=== PATIENT | female | born 2000 | race Caucasian/White ===

== ENCOUNTER 2023-12-30 15:27 | Outpatient (AMB) | payer OTHER, SELFPAY ==
--- NOTE | 2023-12-30 15:51 | MHC.PC.OV ---
Vital Signs 12/30/23 15:56 Height 5 ft 1.81 in Weight 140 lb 8 oz BMI 25.9 BP 94/62 Blood Pressure Location Lt brachial Position Sitting Respiration 12 Pulse 87 Pulse Source Pulse Oximeter Temp 98.6 F Temp Source Oral Pulse Oximetry (%) 99 Oxygen Delivery Method Room Air Intake Visit Reasons: [employer] EST Care Intake Note: New patient visit. 8 weeks Grill Cook Required: No Allergies No Known Allergies Allergy (Verified 12/30/23 15:52) Tobacco use date assessed: 12/30/23 Dental Screening Dental Screen Date: 12/30/23 Did you have a dental visit in the last 12 months?: Yes Did you have a dental problem in the last 6 months where you did not have access to dental care?: No Was dental information given to patient?: Patient has dentist HPI HPI Comments History of Present Illness Details This is a 23-year-old female with no significant past medical history presenting to [facility]. She is due for a physical. She transferred from [facility]. She has a history of exercise-induced asthma, but she has not had symptoms for many years, and she does not carry an inhaler anymore. 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 She is currently 8 weeks . She tells me she suffered a miscarriage in July of this year when she was on vacation in [place]. She is doing okay though she is anxious about the . She feels well supported at home. She is followed by [facility]. She has an ultrasound scheduled 01/07/2024. She has had some mild nausea and fatigue, but she staying active which helps. She is taking a vitamin. She will get her flu shot at the pharmacy since we ran out of stock today. She has a small mole on the left chest that has been there for many years. During the past year she feels like it has gotten larger and become a little elevated. There is no personal or family history of melanoma. ROS: Constitutional: No unexplained weight loss, fever, chills or night sweats. Eyes: No vision changes, blurry vision, double vision, eye pain, eye redness, eye discharge. ENT: No hearing loss, sneezing, congestion, runny nose or sore throat. Respiratory: No shortness of breath, cough or sputum production. Cardiovascular: No chest pain, chest pressure or chest discomfort. No palpitations or pedal edema. Gastrointestinal: No anorexia, vomiting or diarrhea. No abdominal pain or blood in stool. Genitourinary: No dysuria, hematuria, urinary frequency. Neurologic: No headache, dizziness, syncope, unilateral weakness, ataxia, numbness or tingling in the extremities. Musculoskeletal: No muscle pain, back pain, joint pain or swelling. Hematologic/Lymphatics: No bleeding or bruising. No painful lymph nodes. Skin: No rash Endocrine: No cold or heat intolerance. No polyuria or polydipsia. Psychiatric: No depression. No SI/HI. Physical exam: Constitutional: Alert, in no distress. Head: Normocephalic. Eyes: Pupils are equal, round and reactive to light. Extraocular muscles intact. Ear, Nose and Throat: Canals clear. TMs normal. Normal nasal mucosa. No nasal discharge. No oral lesions. Neck: Supple, Full range of motion. No lymphadenopathy. No palpable thyroid masses. Respiratory: Clear to auscultation. Cardiovascular: S1 S2 regular. No murmurs. Gastrointestinal: Abdomen soft, non-tender, non-distended. Normal bowel sounds. No palpable masses. Neurologic: No focal neurological deficits. Symmetric patellar reflexes. Moves all extremities spontaneously. Sensation intact bilaterally. Skin: 3 mm light brown raised nevus on left chest, color is not homogeneous throughout, borders are symmetric Musculoskeletal: No gross deformities. Normal range of motion. Extremities: Warm and well perfused. No clubbing, cyanosis or edema. 3+ peripheral pulses bilaterally. Psychiatric: Normal mood and affect [facility] Medical History (Updated 12/30/23 @ 16:45 by BRIEN Martin) History of miscarriage Routine physical examination Change in mole Exercise-induced asthma DDD (degenerative disc disease), lumbar Family History (Updated 12/30/23 @ 16:11 by BRIEN Martin) Maternal Aunt Breast cancer, Onset Age: 55 Social History Housing: House Patient Tobacco Use Status: Never used Tobacco Second Hand Smoke Exposure: No service: No Current occupational status: employed Current occupation: assisted living nursing director Current occupational exposures/hazards: No Cognitive needs: No Hearing needs: No Vision needs: No Questionnaire PHQ-9 Over the last 2 weeks, how often have you been bothered by any of the following problems? 1. Little interest or pleasure in doing things: not at all 2. Feeling down, depressed, or hopeless: not at all 3. Trouble falling or staying asleep, or sleeping too much: not at all 4. Feeling tired or having little energy: several days 5. Poor appetite or overeating: not at all 6. Feeling bad about yourself - or that you are a failure or have let yourself or your family down: not at all 7. Trouble concentrating on things, such as reading the newspaper or watching television: not at all 8. Moving or speaking so slowly that other people could have noticed. Or the opposite - being so fidgety or restless that you have been moving around a lot more than usual: not at all 9. Thoughts that you would be better off or of hurting yourself in some way: not at all Total score: 1 Depression Screening Interpretation: Negative Depression Screening Done: Yes 49209 - PHQ-9 Billing: Yes Source: Developed by Drs. Jack Adams, Latoya Eden, Choco Thomas and colleagues, with an educational julián from [employer]. Thrive Questionnaire Date Thrive assessed: 12/30/23 I am a: Patient What is your living situation today?: I have a steady place to live Within the past 12 months, did the food you bought not last and you didn't have the money to get more?: Never true Within the past 12 months, did you worry whether your food would run out before you got money to buy more?: Never true Do you have trouble paying for medicines?: No Do you have trouble getting transportation to medical appointments?: No Do you have trouble paying your heating and electricity bill?: No Do you have trouble taking care of your child, family member or friend?: No Do you have trouble with day-to-day activities such as bathing, preparing meals, shopping, managing finances, etc.?: No Are you currently unemployed and looking for a job?: No Are you interested in more education?: No Please select the resources that you would like help with: None Currently or been in a relationship where the following occur: No concerns reported THRIVE Score: 0 AUDIT C Alcohol Use Questionnaire (AUDIT-C) 1. How often do you have a drink containing alcohol?: Never 3. How often do you have six or more drinks on one occasion?: Never Total Score: 0 MARTHA-7 AMB Questionnaire MARTHA-7 Date MARTHA - 7 assessed: 12/30/23 Feeling nervous, anxious, or on edge: 0 = Not at all Not being able to stop or control worryin = Not at all Worrying too much about different things: 0 = Not at all Trouble relaxin = Not at all Being so restless that it is hard to sit still: 0 = Not at all Becoming easily annoyed or irritable: 0 = Not at all Feeling afraid as if something awful might happen: 0 = Not at all Total MARTHA-7 score (0-4 normal; 5-9 mild; 10-14 moderate; 15-21 severe): 0 Source: Developed by Drs. Jack Adams, Latoya Eden, Choco Thomas and colleagues, with an educational julián from [employer]. MARTHA-7 Assessment Billing MARTHA-7 Assessment Tool: MARTHA-7 Assessment 77410 Physical exam (Primary Care) Vital Signs: Last Vital Signs Temp 98.6 F 12/30/23 15:56 Pulse 87 12/30/23 15:56 Resp 12 12/30/23 15:56 BP 94/62 12/30/23 15:56 Pulse Ox 99 12/30/23 15:56 Oxygen Delivery Method Room Air 12/30/23 15:56 BMI result Body Mass Index 25.9 Tobacco/Smoking Status: Tobacco use Status Tobacco use date assessed 12/30/23 12/30/23 16:03 Patient Tobacco Use Status Never used Tobacco 12/30/23 16:03 PHQ-9: PHQ-9 Score PHQ-9: Total score 1 12/30/23 16:12 Depression Screening Interpretation: Negative Thrive Assessment: Date of Thrive Assessment Date Thrive assessed 12/30/23 12/30/23 16:03 Currently or been in a relationship where the following occur: No concerns reported Coding Level of Care Code New Pt Prev Care 18-39yr([id number] Diagnoses Routine physical examination Z00.00 Change in mole D22.9 First trimester Z34.91 Additional Codes MARTHA-7 Assessment Billing - MARTHA-7 Assessment Tool: MARTHA-7 Assessment 20610 ([id number]) Assessment & Plan Assessment & Plan (1) Routine physical examination: Code(s): Z00.00 - Encounter for general adult medical examination without abnormal findings Category: Medical Plan: Patient is seen today for a routine physical. As part of this visit we reviewed the following issues, which are considered and essential part of preventative health in this age group: - Breast Cancer screening - Annual Recovery Analyst exam - Blood pressure screening - Cholesterol screening - Osteoporosis prevention including calcium/vitamin D intake, weight bearing exercise & smoking cessation - Nutritional and exercise counseling - Counseling of injury prevention including fire prevention, smoke alarms and seat belt usage - Screening for depression - Prevention of and/or testing for infectious diseases - Education about skin cancer - Recommendations about immunizations - Recommendation of an eye exam - Screening for substance abuse She will have labs done nonfasting today. (2) Change in mole: Code(s): D22.9 - Melanocytic nevi, unspecified Category: Medical Plan: Referred to [facility] for evaluation. (3) First trimester : Code(s): Z34.91 - Encounter for supervision of normal , unspecified, first trimester Category: Medical Plan: Followed by [facility]. Continue vitamin. Orders: Orders TSH reflex Free T4 Today Z00.00 - Encounter for general adult medical examination without abnormal findings, Z13.6 - Encounter for screening for cardiovascular disorders Complete Blood Count no Diff Today Z00.00 - Encounter for general adult medical examination without abnormal findings, Z13.6 - Encounter for screening for cardiovascular disorders Lipid Panel Today E78.5 - Hyperlipidemia, unspecified, Z00.00 - Encounter for general adult medical examination without abnormal findings, Z13.6 - Encounter for screening for cardiovascular disorders Comprehensive Met. Panel Today Z00.00 - Encounter for general adult medical examination without abnormal findings, Z13.6 - Encounter for screening for cardiovascular disorders
[2023-12-30 15:56] VITALS: BP 94/62; PULSE 87; RESP 12; TEMP 37; O2SAT 99; BMI 25.9
== END 2023-12-30 16:23 | disposition home or self-care (01) ==
PROVIDERS: Visit Provider Physician Assistant Medical
DX: Z00.00 Encounter for general adult medical examination without abnormal findings (principal); D22.9 Melanocytic nevi, unspecified; Z34.91 Encounter for supervision of normal pregnancy, unspecified, first trimester

== ENCOUNTER → 2023-12-30 15:27 | Outpatient (BNVA) | payer OTHER, SELFPAY | PROVIDERS: Visit Provider Physician Assistant Medical | DX: Z00.00 Encounter for general adult medical examination without abnormal findings (principal); D22.9 Melanocytic nevi, unspecified; O09.291 Supervision of pregnancy with other poor reproductive or obstetric history, first trimester; Z3A.08 8 weeks gestation of pregnancy | CPT/HCPCS: 96127 ==